=== PATIENT | female | born 1975 | race Caucasian/White ===

== ENCOUNTER 2018-05-11 17:20 | Emergency (ER) | payer MEDICAID | END 2018-05-11 20:15 | disposition home or self-care (01) | LOC: FTE 17:20 | DX: M79.671 Pain in right foot (principal); L70.0 Acne vulgaris | CPT/HCPCS: 99283; Z7502 ==

== ENCOUNTER 2018-11-02 16:11 | Emergency (ER) | payer OTHER, MEDICAID ==
[2018-11-02] MEDS: KETOROLAC 30 MG INJ IM (19:48)
== END 2018-11-02 20:00 | disposition home or self-care (01) ==
LOC: E/R 16:11
DX: S20.219A Contusion of unspecified front wall of thorax, initial encounter (principal); E11.9 Type 2 diabetes mellitus without complications; V49.40XA Driver injured in collision with unspecified motor vehicles in traffic accident, initial encounter; Z79.84 Long term (current) use of oral hypoglycemic drugs
CPT/HCPCS: 71045; 93005; 96372; 99284-25

== ENCOUNTER 2019-02-04 10:07 | Emergency (ER) | payer OTHER ==
[2019-02-04] MEDS: LIDOCAINE 1% (MDV) 20 ML INJ SC (12:03)
[2019-02-04] MEDS: BACITRACIN 0.9 GM OINT TOP (13:07)
== END 2019-02-04 13:59 | disposition home or self-care (01) ==
LOC: FTE 10:07
DX: L60.0 Ingrowing nail (principal)
CPT/HCPCS: 11765; 99283-25

== ENCOUNTER 2019-02-06 07:17 | Emergency (ER) | payer OTHER | END 2019-02-06 07:50 | disposition home or self-care (01) | LOC: FTE 07:17 | DX: Z48.01 Encounter for change or removal of surgical wound dressing (principal) | CPT/HCPCS: 99283; Z7502 ==

== ENCOUNTER 2019-02-10 16:39 | Emergency (ER) | payer OTHER | END 2019-02-10 18:44 | disposition home or self-care (01) | LOC: FTE 16:39 | DX: L60.0 Ingrowing nail (principal); Z87.2 Personal history of diseases of the skin and subcutaneous tissue | CPT/HCPCS: 99282; Z7502 ==